=== PATIENT | female | born 1975 | race African-American/Black ===

== ENCOUNTER 2017-08-20 09:45 | Day surgery (SDC) | payer OTHER ==
[2017-08-20] MEDS: BUPIVACAINE 0.25% (MPF) 30 ML INJ INJ
[~2017-08-20 09:45] MED LIST: CEFAZOLIN 2 GM/50 ML (PMX) 50 ML IVPB; GLYCOPYRROLATE 0.4 MG INJ; SOD CHLORIDE 0.9% 1,000 ML IV
[2017-08-20 11:39] LABS: ADD MAN DIFF? NO
[2017-08-20 11:41] LABS: BASOPHIL # 0.1 10^3/ul (0.0-0.1); BASOPHILS % 0.9 % (0.0-2.0); EOSINOPHILS # 0.3 10^3/ul (0.0-0.5); EOSINOPHILS % 2.8 % (0.0-7.0); HEMATOCRIT 26.5 % (37.0-47.0); HEMOGLOBIN 9.1 g/dl (12.0-16.0); LYMPHOCYTES # 2.8 10^3/ul (0.8-2.9); LYMPHOCYTES % 31.5 % (15.0-51.0); MEAN CORPUSCULAR HEMOGLOBIN 26.8 pg (29.0-33.0); MEAN CORPUSCULAR HGB CONC 34.3 g/dl (32.0-37.0); MEAN CORPUSCULAR VOLUME 77.9 fl (82.0-101.0); MEAN PLATELET VOLUME 12.3 fl (7.4-10.4); MONOCYTES % 11.6 % (0.0-11.0); NEUTROPHIL # 4.7 10^3/ul (1.6-7.5); NEUTROPHILS % 52.9 % (39.0-77.0); NUCLEATED RED BLOOD CELLS% 0.2 /100WBC (0.0-0.0); PLATELET COUNT 319 10^3/UL (140-415); RED CELL DISTRIBUTION WIDTH 16.8 % (11.5-14.5)
[2017-08-20 11:41] LABS: WHITE BLOOD COUNT 8.9 10^3/ul (4.8-10.8)
[2017-08-20] MEDS ORDERED: BUPIVACAINE 0.25% (MPF) 30 ML INJ (11:41)
[2017-08-20] MEDS ORDERED: ROCURONIUM 50 MG INJ (11:47)
[2017-08-20] MEDS ORDERED: ROPIVACAINE 0.5 % 30 ML VIAL (11:47)
[2017-08-20] MEDS ORDERED: ONDANSETRON 4 MG INJ (11:47)
[2017-08-20] MEDS ORDERED: CEFAZOLIN 1 GM INJ (11:47)
[2017-08-20] MEDS ORDERED: METOCLOPRAMIDE 10 MG INJ (11:47)
[2017-08-20] MEDS ORDERED: MIDAZOLAM 1 MG/ML 2 ML INJ (11:47)
[2017-08-20] MEDS ORDERED: NEOSTIGMINE 3 MG/3 ML SYRINGE (11:47)
[2017-08-20] MEDS ORDERED: PROPOFOL 20 ML (11:47)
[2017-08-20] MEDS ORDERED: KETOROLAC 30 MG INJ (11:49)
[2017-08-20 11:57] LABS: HOLD TRANSMISSIONS 1
[2017-08-20 12:06] LABS: ALANINE AMINOTRANSFERASE 33 IU/L (13-69); ALBUMIN 4.4 g/dl (3.3-4.9); ALBUMIN/GLOBULIN RATIO 1.15; ALKALINE PHOSPHATASE 78 IU/L (42-121); ASPARTATE AMINO TRANSFERASE 46 IU/L (15-46); BILIRUBIN,INDIRECT 1.7 mg/dl (0-1.1); BILIRUBIN,TOTAL 1.7 mg/dl (0.2-1.3); CARBON DIOXIDE 29 mmol/L (21-31); CHLORIDE 106 mmol/L (97-110); GLUCOSE 100 mg/dl (70-220); TOTAL PROTEIN 8.2 g/dl (6.1-8.1)
[2017-08-20 12:11] LABS: INR 1.09; PROTIME 14.3 Sec (11.9-14.9); PT RATIO 1.1
[2017-08-20 12:12] LABS: PARTIAL THROMBOPLASTIN TIME 29.4 Sec (25.0-35.0)
[2017-08-20 12:20] LABS: BLOOD UREA NITROGEN 9 mg/dl (7-20); POTASSIUM 4.5 mmol/L (3.5-5.1)
[2017-08-20 12:21] LABS: CALCIUM 9.5 mg/dl (8.4-10.2); CREATININE 0.52 mg/dl (0.44-1.00)
[2017-08-20 12:34] LABS: ANION GAP 17 (8-16)
[2017-08-20 12:36] LABS: SODIUM 147 mmol/L (135-144)
[2017-08-20] MEDS ORDERED: traMADol 50 MG TAB PO (13:00)
[2017-08-20] MEDS ORDERED: OXYCODONE/ACETAMINOPHEN (5/325) TAB PO ×2 (13:30)
[2017-08-20] MEDS ORDERED: DIPHENHYDRAMINE 50 MG INJ IV (13:30)
[2017-08-20] MEDS ORDERED: MEPERIDINE 25 MG INJ IV (13:30)
[2017-08-20] MEDS ORDERED: HYDROmorphONE (0.2 MG/ML) 10ML SYG IV ×3 (13:30)
[2017-08-20] MEDS ORDERED: ONDANSETRON 4 MG INJ IV (13:30)
== END 2017-08-20 14:55 | disposition home or self-care (01) ==
LOC: SDS 09:45
DX: K80.10 Calculus of gallbladder with chronic cholecystitis without obstruction (principal)
CPT/HCPCS: 47562; 80053; 84703; 85025; 85610; 85730; 88304